=== PATIENT | female | born 1935 | race Native Hawaiian/Other Pacific Islander ===

== ENCOUNTER 2016-12-06 14:01 | Emergency (ER) | payer MEDICAID ==
[~2016-12-06] VITALS: Ht 154.9 cm; Wt 50.0 kg
[~2016-12-06 14:01] MED LIST: CALC1TAB12 PO; ERGO1CAP10 PO; MULT-65 PO
[2016-12-06 14:03] VITALS: BP 181/85; PULSE 92; RESP 18; TEMP 98.4; O2SAT 100
--- NOTE | 2016-12-07 13:39 | EKG ---
Date Performed: 12/06/2016 Time Performed: 14:32:54 PTAGE: 81 years EKG: Sinus rhythm WITH SHORT AL INTERVAL LOW QRS VOLTAGE IN EXTREMITY LEADS NONSPECIFIC T-WAVE ABNORMALITY BORDERLINE ECG PREVIOUS TRACING : 07/19/2016 15.43 Compared to prior tracing no significant change DOCTOR: Dhaval Carlisle Interpretating Date/Time 12/07/2016 13:36:40
== END 2016-12-06 16:00 | disposition left against medical advice (07) ==
LOC: NED 14:01
DX: R94.31 Abnormal electrocardiogram [ECG] [EKG] (principal)
CPT/HCPCS: 93005; 99281